=== PATIENT | male | born 1985 | race Caucasian/White ===

== ENCOUNTER 2017-12-09 11:31 | Emergency (ER) | payer SELFPAY ==
--- NOTE | 2017-12-09 11:34 | ED Physician Documentation ---
Sore Throat/Dental Pain - HISTORIAN Historian: patient - HPI Stated Complaint: dental pain x 1 week Chief Complaint: Dental Pain Onset: other (1 week ) Context: Fractured Tooth, Abscess Associated Symptoms: mild. denies: fever, chills, sore throat Worsened By: heat, cold Further Comments: yes (States he has had broken teeth for a while but pain started after a filling fell out of a tooth on right side . Denies a fever. He does have a dental appt 2 weeks) - ROS CONST: no problems GI/: denies: nausea, vomiting MS/SKIN/LYMPH: denies: rash NEURO/PSYCH: denies: headache - PAST HX Past History: none Other History: none Immunizations: UTD Allergies/Adverse Reactions: Allergies Allergy/AdvReac Type Severity Reaction Status Date / Time No Known Allergies Allergy Unverified 12/09/17 11:39 Home Medications: Ambulatory Orders Medication Instructions Recorded NK [NK] 12/09/17 - SOCIAL HX Smoking History: cigarettes Alcohol Use: none Drug Use: none - FAMILY HX Family History: No - REVIEWED ASSESSMENTS Nursing Assessment Reviewed: Yes Vitals Reviewed: Yes Dental Pain Physical Exam - EXAM General Appearance: no acute distress Head/Neck: No: mandibular swelling (R), mandibular swelling (L), facial erythema , neck mass/swelling Mouth/Throat: other (right upper back teeth (3) with broken pieces and small amount of white drainge. Gums with mild redness ) Ear/Nose: nml inspection Respiratory: no resp. distress, breath sounds nml, respiratory distress CVS: reg. rate & rhythm, heart sounds nml Abdomen: soft Skin: warm/dry Neuro/Psych: No: weakness, numbness, anxiety Discharge Clincal Impression: Pain, dental Referrals: Rambo Barth MD [Primary Care Provider] - 2 Days Additional Instructions: 1. Amoxicillin 500 mg TID X 10 days 2. Tramodol 50 mg every 12 hours as needed for pain 3. Warm salt water gargles 4. Keep appt with dentist 5. Return to PCP in 3-5 days if continued pain 6. Return to ER for any concerns Condition: Stable Disposition: 01 HOME, SELF-CARE Decision to Admit: NO Date of Decison to Admit: 12/09/17 Decision Time: 11:41
[2017-12-09 11:40] VITALS: BP 145/82
[2017-12-09] MEDS: KETOROLAC TROMETHAMINE 60 MG/2 ML VIAL IM ONE (11:40)
== END 2017-12-09 11:48 | disposition home or self-care (01) ==
LOC: ED 11:31
DX: K08.89 Other specified disorders of teeth and supporting structures (principal)
CPT/HCPCS: 96372; 99282; J1885